=== PATIENT | male | born 1970 | race Hispanic/Latino ===

== ENCOUNTER → 2017-09-10 | Day surgery (SDC) | payer BC ==
[~2017-09-10] MED LIST: Iodixanol 320 MG/ML 200 ML BOTTLE IV ONE; Lidocaine 2% MPF (5 ml) Inj ONE; Midazolam 2 MG/2 ML VIAL ONE
[2017-09-10 10:04] LABS: ARTERIAL BLOOD GAS HCO3 25.4 mmol/L (21-28); ARTERIAL BLOOD GAS HEMOGLOBIN 14.4 g/dL (11.7-17.4); ARTERIAL BLOOD GAS O2 SAT 97.9 % (95-98); ARTERIAL BLOOD GAS PCO2 43 mm/Hg (35-45); ARTERIAL BLOOD GAS PH 7.39 (7.35-7.45); ARTERIAL BLOOD GAS PO2 100 mm/Hg (80-100); ARTERIAL BLOOD GAS TCO2 27.3 mmol/L (22-28)
[2017-09-10 10:07] LABS: VENOUS BLOOD GAS PCO2 53 mmHg (40-60); VENOUS BLOOD GAS PO2 38 mm/Hg (30-55); VENOUS BLOOD PH 7.33 (7.32-7.43)
--- NOTE | 2017-09-10 21:14 | CARDCATH ---
PROCEDURE DATE: 09/10/2017 PROCEDURES: Left heart catheterization, right heart catheterization, selective coronary angiography, left ventriculography. Site is the right femoral artery and vein. COMPLICATIONS: None. DESCRIPTION OF PROCEDURE: After obtaining the informed consent, the patient was premedicated with 25 mg of fentanyl and 1 mg of Versed and brought to the cardiac aquatic laborer. The patient was prepped and draped in the usual sterile manner. A 2% lidocaine was used as local anesthesia. The right femoral artery and vein were cannulated via the modified Seldinger technique, and a 6 and 7-Luxembourger sheath were inserted into them respectively. A 7-Luxembourger Mammoth-Salty catheter was advanced up the inferior vena cava; pass the right atrium, right ventricle, and into the pulmonary artery, finally placed into the wedge position. Pressure measurements were made at each level. Oxygen saturations were sampled from both the pulmonary artery and the aorta. A series of hemodynamic measurement were then made. At this time, over a wire and under fluoroscopic guidance, a 6-Luxembourger JL4 diagnostic catheter was advanced through the left main coronary ostium. Selective angiography of the left coronary system was then performed in multiple views. The JL4 catheter was then removed over a wire and exchanged for a 6-Luxembourger JR4 diagnostic catheter that was advanced across the aortic valve into the left ventricle. After measuring left ventricular end-diastolic pressure, ventriculography was performed in the ESTRADA projection. The catheter was then flushed and carefully withdrawn across the aortic valve under continuous pressure monitoring. The JR4 catheter was then manipulated within the ascending aorta and successfully cannulated the ostium of the right coronary artery. Selective angiography of the right coronary artery was performed in multiple views. The JR4 catheter was then removed over a wire. The Mammoth-Salty catheter was then removed under continuous pressure monitoring. RESULTS: HEMODYNAMICS: The mean right atrial pressure was 20 mmHg. Right ventricular pressure 50/16 mmHg. Pulmonary artery pressure 50/37 mmHg with the mean of 29 mmHg. The pulmonary capillary wedge pressure mean was 21 mmHg. The cardiac output by the Uriel technique was 6.5 L/min with an index of 2.7 L/min/sq m. The aortic pressure was 110/80, heart rate 88 beats/minute, left ventricular end-diastolic pressure was 18 mmHg. There was no gradient across the aortic valve. ANGIOGRAPHIC DATA: 1. Left main coronary artery: This vessel is free of significant disease. 2. Left anterior descending coronary artery: This vessel travels along the anterior intraventricular groove and supplies the network of septal and diagonal branches. There is a moderate to severe degree of calcifications noted throughout the proximal vessel. The very proximal aspect of the LAD has a 30% stenosis. There is a long segment of severe disease throughout the mid vessel, that is approximately 90% in severity. The first diagonal branch is a lengthy vessel that has a 90% stenosis. 3. Left circumflex coronary artery: This is a moderately sized vessel. The proximal vessel has a 60% to 70% stenosis. A low lying obtuse marginal branch has a long segment of disease that is approximately 75% in severity. 4. Ramus intermedius. This is a large caliber lengthy vessel, that has a long segment of disease at the proximal to mid aspect. It is approximately 80% stenosed at its tightest point. 5. Right coronary artery: This is a relatively small caliber vessel that supplies a small PDA and posterolateral system. The proximal vessel has an 80% eccentric stenosis. The mid vessel has segment of moderate disease of approximately 40% in severity. The distal vessel again supplies a small PDA and posterolateral branch. 6. Left ventriculography: Overall left ventricular function is severely reduced. The estimated ejection fraction is 15%. There is diffused hypokinesis. IMPRESSION: 1. Coronary artery disease, three vessel. 2. Left ventricular dysfunction, diffused with the severe reduction in ejection fraction. 3. Pulmonary hypertension with the mean pulmonary artery pressure of approximately 30 mmHg. 4. Marked elevation of the patient's pulmonary capillary wedge pressure. RECOMMENDATIONS: 1. Aggressive medical therapy and risk factor modification. 2. All forms of coronary revascularization will be considered in this patient. 3. In view of the patient's severe LV dysfunction, we will have the patient followup additionally with the certified first assistant as ICD therapy may be indicated in the future. If LV dysfunction remains poor following revascularization and aggressive medical therapy, ICD will certainly being a consideration. Del Weiss DO
== END | disposition home or self-care (01) ==
LOC: C.CATHLAB 07:35
PROVIDERS: ATTEND Internal Medicine Cardiovascular Disease
DX: I25.10 Atherosclerotic heart disease of native coronary artery without angina pectoris (principal); I42.0 Dilated cardiomyopathy; I50.22 Chronic systolic (congestive) heart failure; I27.20 Pulmonary hypertension, unspecified
CPT/HCPCS: 82803; 82948; 93453; C1714; C1760; C1766; C1769; C1887; C1893; J1644; J2250; J3010; Q9966